=== PATIENT | male | born 1960 | race Caucasian/White ===

== ENCOUNTER 2020-08-25 17:14 | Emergency (ER) | payer BC, SELFPAY ==
[2020-08-25 17:20] VITALS: BP 164/76; PULSE 104; RESP 17; TEMP 36.4; O2SAT 100; BMI 23.0
--- NOTE | 2020-08-25 20:31 | ED.EXTPRO ---
HPI - Extremity Problem General Chief complaint: Extremity Problem,Nontraumatic Stated complaint: thinks blood clot in arm Time Seen by Provider: 08/25/20 18:07 Source: patient, family () and other Mode of arrival: Ambulatory Limitations: no limitations History of Present Illness HPI Narrative: This is a 59-year-old male who comes emergency department with concern for DVT in his right upper extremity. Patient states he had a DVT 10 years ago, he states they never found a cause. He continues to take Xarelto daily. He denies any missed doses or medication vacations. He states his only other medication is pravastatin. He states he started having similar symptoms which is tingling in his arms some very mild swelling in the hand. He was at the office on [facility] today his arm circumference was 1 cm larger than the left although he states that he is right-hand dominant and there is occasionally mild swelling on that side so this is not entirely unexpected. He denies fevers, no chest pain or pressure, no passing out. He denies any other symptoms. Related Data Home Medications Medication Instructions Recorded Confirmed pravastatin 40 mg PO DAILY 08/25/20 08/25/20 rivaroxaban [Xarelto] 10 mg PO DAILY 08/25/20 08/25/20 Allergies Allergy/AdvReac Type Severity Reaction Status Date / Time No Known Drug Allergies Allergy Verified 08/25/20 17:22 Review of Systems Review of Systems ROS Unobtainable: All systems reviewed & are unremarkable except as noted in HPI and below Patient History Medical History (Updated 08/25/20 @ 21:30 by Anamaria Rodriguez DO) DVT (deep venous thrombosis) Dyslipidemia Social History Smoking Status: Never smoker Smoking Status: Never smoker alcohol intake frequency: 0-2 drinks per day Alcohol type: wine Substance Use Type: does not use Exam Narrative Exam Narrative: GENERAL: Alert and oriented x three, well-nourished, well-appearing male in mild distress. HEENT: Head normocephalic, atraumatic, EOMI, pupils reactive, face symmetric, moist mucous membranes NECK: Supple, full range of motion CARDIOVASCULAR: Regular rate and rhythm without murmurs, rubs or gallops. RESPIRATORY: Breath sounds equal bilaterally, no wheezes rales or rhonchi. ABDOMEN: Soft, nontender. Normoactive bowel sounds all 4 quadrants. No guarding or rebound, rigidity, no mass : No CVA tenderness EXTREMITIES: Normal range of motion, no clubbing. Very mild edema in the right hand in comparison to left. I am not able to appreciate any swelling of right upper extremity in comparison to left. Full range of motion. No Color change early appreciated Neurovascularly intact. 2+ radial pulses bilaterally. NEUROLOGICAL: Cranial nerves II through XII grossly intact. Moving all extremities SKIN: Warm, dry, no petechiae, no rashes or lesions. Initial Vital Signs Initial Vital Signs: Vital Signs Temperature 97.6 F 08/25/20 17:20 Pulse Rate 104 H 08/25/20 17:20 Respiratory Rate 17 08/25/20 17:20 Blood Pressure 164/76 H 08/25/20 17:20 Pulse Oximetry 100 08/25/20 17:20 Scores Wells' Criteria for DVT Active Cancer (Treatment within 6 months): No Bedridden recently >3 days or major surgery within 4 weeks: No Calf Swelling >3cm compared to other leg: No Collateral (nonvericose) superficial veins present: No Entire leg swollen: No Localized tenderness along the deep vein system: No Pitting edema, confined to symtomatic leg: No Paralysis, paresis, or recent plaster immobilization of ext: No Previously documented DVT: Yes Alternative dx to DVT as likely or more likely: No Wells' criteria for DVT: 1 Course Orders Ordered: ED Orders 08/25/20 20:41 US periph venous up extrem rt Stat Vital Signs Vital signs: Vital Signs - 8 hr 08/25/20 21:39 Pulse Rate 78 Respiratory Rate 20 Blood Pressure 138/82 Pulse Oximetry 100 MDM - Extremity (Nontraumatic) Imaging Data US - DVT: My Impression: prelim is negative. Radiologist's Impression: [address] [id number] ReportSigned Patient: Young Caldwell EMR#: [id number]: 1Acct:[id number]/Sex: 59 / MDate of Service: 08/25/20Loc: EDAccession Number: [id number] Procedure: US periph venous up extrem rt Ordering Provider: Mank,Anamaria C D.O. PROCEDURE: US PERIPH VENOUS UP EXTREM RT INDICATIONS: EDEMA TECHNIQUE: Real-time imaging, as well as color and pulse Doppler interrogation, was performed of the right upper extremity deep veins from the inferior neck to the antecubital fossa. COMPARISON: None. FINDINGS: The internal jugular vein, visualized portions of the subclavian vein, axillary, and brachial veins are free of intraluminal thrombus. Where physically possible, the veins are normally compressible. Color and pulse Doppler demonstrate normal intraluminal flow, with expected phasicity and pulsatility. Additional scanning of the cephalic and basilic veins of the superficial system demonstrate normal compressibility, without thrombus. IMPRESSION: No DVT in the right upper extremity. Dictated by: Lizz Orozco M.D. on 08/25/2020 at 22:15 Approved by: Lizz Orozco M.D. on 08/25/2020 at 22:15 [facility] Narrative Medical decision making narrative: 59-year-old male on Xarelto with a history of right upper extremity DVT. Patient had some similar symptoms with very mild swelling and tingling in his extremity which is similar to symptoms he had in the past. He has not had skip doses. Discussed D-dimer versus is ultrasound as patient is concerned there was a 1 in circumference difference when checked at the office today. Patient does live on [facility] and has difficulty returning for further evaluation if he needed so decision was made to progress with ultrasound which is negative today. Discussed with patient other possible causes and to watch for any other concerning symptoms for further evaluation if needed. Discharge Plan Departure Patient Disposition: Home Clinical Impression: Tingling of right upper extremity Activity Restrictions/Additional Instructions: Follow-up with your physician this week for recheck. No blood clot or DVT was noted on your ultrasound this evening. Continue home medications as prescribed. Return to the ER for fevers, rapidly worsening swelling, new numbness, weakness or difficulty using your extremity, fevers, color changes of your extremity, new chest pain or pressure, shortness of breath or other new or concerning symptoms. Prescriptions: No Action pravastatin 40 mg tablet 40 mg PO DAILY RF: 0 Xarelto 10 mg tablet 10 mg PO DAILY RF: 0
--- NOTE | 2020-08-25 20:41 | DI.US.S_ITS ---
PROCEDURE: US PERIPH VENOUS UP EXTREM RT INDICATIONS: EDEMA TECHNIQUE: Real-time imaging, as well as color and pulse Doppler interrogation, was performed of the right upper extremity deep veins from the inferior neck to the antecubital fossa. COMPARISON: None. FINDINGS: The internal jugular vein, visualized portions of the subclavian vein, axillary, and brachial veins are free of intraluminal thrombus. Where physically possible, the veins are normally compressible. Color and pulse Doppler demonstrate normal intraluminal flow, with expected phasicity and pulsatility. Additional scanning of the cephalic and basilic veins of the superficial system demonstrate normal compressibility, without thrombus. IMPRESSION: No DVT in the right upper extremity. Dictated by: Lizz Orozco M.D. on 08/25/2020 at 22:15 Approved by: Lizz Orozco M.D. on 08/25/2020 at 22:15
[2020-08-25 21:39] VITALS: BP 138/82; PULSE 78; RESP 20; O2SAT 100
== END 2020-08-25 21:40 | disposition home or self-care (01) ==
PROVIDERS: Emergency Provider Emergency Medicine
DX: R20.2 Paresthesia of skin (principal); Z86.718 Personal history of other venous thrombosis and embolism
CPT/HCPCS: 93971; 99283

== ENCOUNTER → 2020-09-05 12:34 | Outpatient (CLI) | payer BC, SELFPAY ==
--- NOTE | 2020-09-05 | DI.US.S_ITS ---
PROCEDURE: US PERIPH VENOUS UP EXTREM MIKIE INDICATIONS: Bilate arm swelling; Rule out DVT TECHNIQUE: Real-time imaging, as well as color and pulse Doppler interrogation, was performed of both upper extremity deep veins from the inferior neck to the antecubital fossa. COMPARISON: None. FINDINGS: Right: The internal jugular veins, visualized portions of the subclavian veins, axillary veins, and brachial veins are free of intraluminal thrombus. Where physically possible, the veins are normally compressible. Color and pulse Doppler demonstrate normal intraluminal flow, with expected phasicity and pulsatility. Additional scanning of the cephalic and basilic veins of the superficial system demonstrate normal compressibility, without thrombus. IMPRESSION: No DVT in the right upper extremity. Dictated by: Arnel Reyes M.D. on 09/05/2020 at 14:02 Approved by: Arnel Reyes M.D. on 09/05/2020 at 14:02
== END ==
PROVIDERS: PCP Family Medicine; Referring Provider Family Medicine; Visit Provider Family Medicine
DX: M79.89 Other specified soft tissue disorders (principal)
CPT/HCPCS: 93971

== ENCOUNTER → 2020-09-11 15:23 | Outpatient (CLI) | payer BC, SELFPAY ==
--- NOTE | 2020-09-11 | DI.RAD.S_ITS ---
PROCEDURE: XR CHEST 2V INDICATIONS: RIGHT ARM SWELLING TECHNIQUE: 2 views of the chest were acquired. COMPARISON: None. FINDINGS: Surgical changes and devices: None. Lungs and pleura: Lungs are clear. No pleural effusions or pneumothorax. Mediastinum: Mediastinal contours are normal. Heart size is normal. Bones and chest wall: No suspicious bony abnormalities. Soft tissues appear unremarkable. IMPRESSION: No acute disease. Dictated by: Pawel Zee M.D. on 09/11/2020 at 16:38 Approved by: Pawel Zee M.D. on 09/11/2020 at 16:39
--- NOTE | 2020-09-11 | DI.CT.S_ITS ---
PROCEDURE: CT UE RT W CON INDICATIONS: ARM SWELLING SPECIAL INSTRUCTIONS VENOGRAM PROTOCOL TECHNIQUE: After the administration of intravenous contrast, 3 mm axial sections acquired of the right upper extremity, with coronal and sagittal reformats. COMPARISON: None. FINDINGS: Image quality: Excellent. Bones: No fracture or focal osseous lesion identified. Soft tissues: The right axillary, brachial and radial and ulnar arteries appear grossly contrast opacified. The veins of the right upper extremity are not well seen . No discrete mass identified The muscles are grossly unremarkable. No discrete abscess or fluid collection is seen. IMPRESSION: Suboptimal venogram as above. Right upper extremity veins are not well seen diffusely which could be due to poor contrast opacification however cannot exclude intraluminal filling defect. If there is persistent clinical concern for DVT, recommend a repeat ultrasound. Dictated by: Pawel Zee M.D. on 09/11/2020 at 17:00 Approved by: Pawel Zee M.D. on 09/11/2020 at 17:05
--- NOTE | 2020-09-11 | DI.CT.S_ITS ---
PROCEDURE: CT CHEST W CON INDICATIONS: RIGHT ARM SWELLING TECHNIQUE: After the administration of intravenous contrast, 5 mm thick sections acquired from the pulmonary apices to the posterior costophrenic angles. 1 mm axial lung, 5 mm thick coronal and sagittal reformats and 7 mm axial MIP were acquired. For radiation dose reduction, the following was used: automated exposure control, adjustment of mA and/or kV according to patient size. COMPARISON: [facility], US, US PERIPH VENOUS UP EXTREM MIKIE, 09/05/2020, 12:56. [facility], CT, CT UE RT W CON, 09/11/2020, 15:30. FINDINGS: Image quality: Excellent. Scattered subsegmental atelectasis and/or scarring. No focal consolidation. No pleural effusions or pneumothorax. Central and peripheral airways are patent and normal in caliber. Mediastinum: Heart size is normal. No pericardial effusion. No mediastinal or hilar adenopathy by size criteria. Thoracic aorta and central pulmonary arteries are normal in size. Esophagus is normal in caliber. No hiatal hernia. Bones and chest wall: No suspicious bony lesions. No vertebral body compression fractures. No axillary or supraclavicular adenopathy by size criteria. Thyroid is grossly unremarkable. There is adequate contrast opacification of the internal jugular veins bilaterally, and the brachiocephalic vein bilaterally. However the subclavian, axillary and distal upper extremity veins are not well contrast opacified. In particular, the right subclavian vein is not well seen. A discrete intraluminal filling defect is not well seen. There appears to be layering contrast material within the left axillary and subclavian vein raising the possibility of venous stasis. Abdomen: Visualized upper abdominal solid organs appear normal. Upper abdominal bowel loops are normal in caliber. IMPRESSION: Central venous structures including the SVC, internal jugular vein, brachiocephalic veins appear grossly patent bilaterally. Poor contrast opacification of the remaining venous structures as detailed above. Technically, cannot exclude DVT within the subclavian, axillary or distal venous structures. If there is persistent clinical concern, recommend follow-up upper extremity ultrasound. In particular, the right subclavian vein is not well seen raising possibility of stenosis or occlusion. No lymphadenopathy identified No acute consolidation Dictated by: Pawel Zee M.D. on 09/11/2020 at 16:46 Approved by: Pawel Zee M.D. on 09/11/2020 at 16:59
== END ==
PROVIDERS: PCP Family Medicine; Referring Provider Family Medicine; Visit Provider Family Medicine
DX: M79.89 Other specified soft tissue disorders (principal); Z86.718 Personal history of other venous thrombosis and embolism
CPT/HCPCS: 71046; 71260; 73201; Q9967

== ENCOUNTER 2020-09-15 15:00 | Emergency (ER) | payer BC, SELFPAY ==
[2020-09-15 15:05] VITALS: BP 143/69; PULSE 89; RESP 16; TEMP 36.6; O2SAT 100; BMI 22.4
--- NOTE | 2020-09-15 15:14 | DI.US.S_ITS ---
PROCEDURE: PERIP VENOUS UP EXTREM RT INDICATIONS: INCREASING PAIN AND SWELLING. Clinical concern for DEEP VEIN THROMBOSIS. TECHNIQUE: Real-time imaging, as well as color and pulse Doppler interrogation, was performed of the right upper extremity deep veins from the inferior neck to the antecubital fossa. COMPARISON: [facility], [facility] VENOUS UP EXTREM MIKIE, 09/05/2020, 12:56. [facility], PERIP VENOUS UP EXTREM RT, 08/25/2020, 21:11. FINDINGS: The internal jugular vein, visualized portions of the subclavian vein, axillary, and brachial veins are free of intraluminal thrombus. Where physically possible, the veins are normally compressible. Color and pulse Doppler demonstrate normal intraluminal flow, with expected phasicity and pulsatility. Additional scanning of the cephalic and basilic veins of the superficial system demonstrate normal compressibility, without thrombus. IMPRESSION: Negative for deep venous thrombosis. Dictated by: Moncho Muller M.D. on 09/15/2020 at 15:28 Approved by: Moncho Muller M.D. on 09/15/2020 at 15:29
--- NOTE | 2020-09-15 17:36 | ED.GENADULT ---
HPI - General Adult General Chief complaint: Extremity Injury, Upper Stated complaint: RIGHT ARM SWELLING PAIN Time Seen by Provider: 09/15/20 17:18 Source: patient Mode of arrival: Ambulatory Limitations: no limitations History of Present Illness HPI narrative: 59-year-old male who has had issues with his right arm and shoulder over the past several weeks. He has had a DVT in the past. He is currently on Xarelto. He states he has been taking this on a daily basis. He has seen his primary doctor regarding tingling in his upper extremity and some swelling. He thinks that it is mostly associated when he uses his arm excessively however his primary doctor ordered a CT scan of his upper extremity. Review of the CT results shows that the arterial flow to his upper extremities unremarkable they venous side of the CT scan was indeterminate. The patient contacted his primary doctor's office today because he was having continued symptoms and his doctor was not in the office they told to come the emergency department for evaluation. Related Data Home Medications Medication Instructions Recorded Confirmed pravastatin 40 mg PO DAILY 08/25/20 08/25/20 rivaroxaban [Xarelto] 10 mg PO DAILY 08/25/20 08/25/20 Allergies Allergy/AdvReac Type Severity Reaction Status Date / Time No Known Drug Allergies Allergy Verified 09/15/20 15:10 Review of Systems Constitutional Constitutional: Denies fatigue and Denies headache(s) ENT Ears, Nose, Mouth, and Throat: Denies headache(s) Cardiovascular Cardiovascular: Denies chest pain and Denies dyspnea Respiratory Respiratory: Denies dyspnea Gastrointestinal Gastrointestinal: Denies abdominal pain Musculoskeletal Musculoskeletal: Reports tingling Comments: Right shoulder arm and hand tingling and pain Integumentary/Breasts Skin/Breast: Denies rash Neurologic Neurologic: Denies headache(s) and Reports tingling Endocrine Endocrine: Denies fatigue Hematologic/Lymphatic On Anticoagulants: Yes Allergic/Immunologic Allergic/Immunologic: Denies urticaria Patient History Medical History DVT (deep venous thrombosis) Dyslipidemia Social History Smoking Status: Never smoker Smoking Status: Never smoker alcohol intake frequency: 0-2 drinks per day Alcohol type: wine Substance Use Type: does not use Exam Initial Vital Signs Initial Vital Signs: Vital Signs Temperature 98 F 09/15/20 15:05 Pulse Rate 89 09/15/20 15:05 Respiratory Rate 16 09/15/20 15:05 Blood Pressure 143/69 H 09/15/20 15:05 Pulse Oximetry 100 09/15/20 15:05 Const General: cooperative and comfortable Limitations: mental status not altered HENMT Head: normal to inspection and normocephalic Resp Effort & Inspection: normal respiratory effort Auscultation: clear to auscultation bilaterally Cardio Rate: regular rate Rhythm: regular rhythm Pulses: radial pulses present on the right Skin Lesions: no lesions Rashes: no rashes Neuro General: patient alert, patient awake and patient oriented x3 Cognition: normal cognition Speech: speech normal Motor: muscle tone normal throughout Sensory Exam: no sensory deficits noted Extrem General: normal to inspection and capillary refill normal Psych Appearance: grossly normal and well kempt Course Orders Ordered: ED Orders 09/15/20 15:14 [facility] venous up extrem rt Stat Vital Signs Vital signs: Vital Signs - 8 hr 09/15/20 15:05 Temperature 98 F Pulse Rate 89 Respiratory Rate 16 Blood Pressure 143/69 H Pulse Oximetry 100 Medical Decision Making Imaging Data US - DVT: Radiologist's Impression: [address] [id number] ReportSigned Patient: Young Caldwell EMR#: [id number]: 1960cct:[id number]/Sex: 59 / MDate of Service: 09/15/20Loc: EDAccession Number: [id number] Procedure: [facility] venous up extrem rt Ordering Provider: Jh Schroeder D.O. PROCEDURE: [facility] VENOUS UP EXTREM RT INDICATIONS: INCREASING PAIN AND SWELLING. Clinical concern for DEEP VEIN THROMBOSIS. TECHNIQUE: Real-time imaging, as well as color and pulse Doppler interrogation, was performed of the right upper extremity deep veins from the inferior neck to the antecubital fossa. COMPARISON: [facility] PERIP VENOUS UP EXTREM MIKIE, 09/05/2020, 12:56. [facility] PERIP VENOUS UP EXTREM RT, 08/25/2020, 21:11. FINDINGS: The internal jugular vein, visualized portions of the subclavian vein, axillary, and brachial veins are free of intraluminal thrombus. Where physically possible, the veins are normally compressible. Color and pulse Doppler demonstrate normal intraluminal flow, with expected phasicity and pulsatility. Additional scanning of the cephalic and basilic veins of the superficial system demonstrate normal compressibility, without thrombus. IMPRESSION: Negative for deep venous thrombosis. Dictated by: Moncho Muller M.D. on 09/15/2020 at 15:28 Approved by: Moncho Muller M.D. on 09/15/2020 at 15:29 [facility] Narrative Medical decision making narrative: Review the CT scan shows that the arterial flow his right upper extremity is unremarkable. The DVT ultrasound today is unremarkable. Low suspicion for CVA. Low suspicion for TIA. He had has an appointment scheduled with vascular surgeon next week. Feel we can hold on further workup for now. He can be safely discharged home. Given return precautions and follow-up instructions. He expressed understanding agreement. Discharge Plan Departure Patient Disposition: Home Clinical Impression: Paresthesia of right arm Instructions: DI for Arm Pain Activity Restrictions/Additional Instructions: Recommend that you continue all of your medications as directed especially your Xarelto. Keep all of your scheduled medical appointments. Return to the emergency department for any new or worsening symptoms Prescriptions: No Action pravastatin 40 mg tablet 40 mg PO DAILY RF: 0 Xarelto 10 mg tablet 10 mg PO DAILY RF: 0 Referrals: Jh Sanchez MD [Primary Care Provider] -
[2020-09-15 17:37] VITALS: BP 128/75; PULSE 89; RESP 16; O2SAT 99
== END 2020-09-15 17:40 | disposition home or self-care (01) ==
PROVIDERS: Emergency Provider Emergency Medicine; PCP Family Medicine
DX: R20.2 Paresthesia of skin (principal); R22.31 Localized swelling, mass and lump, right upper limb; Z79.01 Long term (current) use of anticoagulants
CPT/HCPCS: 93971; 99283

== ENCOUNTER → 2020-12-12 08:20 | Outpatient (CLI) | payer BC, SELFPAY ==
[2020-12-12 18:49] LABS: Add Manual Diff / Slide Review NO; Basophils Absolute Auto 0 /uL (0-100); Basophils Percent Auto 1.1 % (0-2); Eosinophils Absolute Auto 100 /uL (0-450); Eosinophils Percent Auto 1.5 % (2-4); Hematocrit 45.8 % (41-53); Hemoglobin 15.5 g/dL (13.5-17.5); Lymphocytes Absolute Auto 1800 /uL (1100-4500); Lymphocytes Percent Auto 39.2 % (25-40); Mean Corpuscular HGB Conc 33.9 % (30-36); Mean Corpuscular Hemoglobin 31.9 PG (26-34); Monocytes Absolute Auto 400 /uL (0-900); Monocytes Percent Auto 8.2 % (3-14); Neutrophils Absolute Auto 2200 /uL (1500-7000); Platelet Count 221 X10^3/uL (150-400); Red Blood Cell Count 4.87 X10^6/uL (4.5-5.9); Red Cell Distribution Width 14.1 % (11.6-14.8); White Blood Cell Count 4.5 X10^3/uL (4.5-11.0)
[2020-12-12 19:37] LABS: Alanine Aminotransferase 29 IU/L (<50); Albumin 4.4 g/dL (3.5-5.0); Albumin Globulin Ratio 1.5 (1.0-2.8); Alkaline Phosphatase 45 U/L (38-126); Aspartate Aminotransferase 38 IU/L (17-59); BUN Creatinine Ratio 15.6 (6-22); Bilirubin Total 0.7 mg/dL (0.2-1.3); Blood Urea Nitrogen 12 mg/dL (9-20); Calcium 9.4 mg/dL (8.4-10.2); Carbon Dioxide 30 mmol/L (22-32); Chloride 102 mmol/L (98-107); Cholesterol 176 mg/dL (140-199); Estimated Glomerular Filt Rate > 60.0 mL/min (>60); Globulin 2.9 g/dL (1.7-4.1); Glucose 101 mg/dL (80-110); HDL Cholesterol 61 mg/dL (40-60); HEMOLYSIS < 15 (0-50); LDL Cholesterol Calculated 97 mg/dL (<100); Potassium 4.6 mmol/L (3.4-5.1); Sodium 140 mmol/L (137-145); Total Protein 7.3 g/dL (6.3-8.2); Triglycerides 91 mg/dL (35-150)
== END ==
PROVIDERS: PCP Family Medicine; Visit Provider Family Medicine
DX: E78.5 Hyperlipidemia, unspecified (principal); R10.9 Unspecified abdominal pain
CPT/HCPCS: 80053; 80061; 85025

== ENCOUNTER → 2021-10-05 10:06 | Outpatient (CLI) | payer BC, SELFPAY | PROVIDERS: PCP Family Medicine; Visit Provider Family Medicine | DX: R19.7 Diarrhea, unspecified (principal) | CPT/HCPCS: 87045; 87177; 87899 ==

== ENCOUNTER → 2022-02-21 09:27 | Outpatient (CLI) | payer BC, SELFPAY ==
[2022-02-21 20:06] LABS: Alanine Aminotransferase 30 IU/L (<50); Albumin 4.6 g/dL (3.5-5.0); Albumin Globulin Ratio 1.4 (1.0-2.8); Alkaline Phosphatase 47 U/L (38-126); Aspartate Aminotransferase 48 IU/L (17-59); BUN Creatinine Ratio 12.7 (6-22); Bilirubin Total 0.7 mg/dL (0.2-1.3); Blood Urea Nitrogen 10 mg/dL (9-20); Calcium 8.8 mg/dL (8.4-10.2); Carbon Dioxide 29 mmol/L (22-32); Chloride 102 mmol/L (98-107); Cholesterol 213 mg/dL (140-199); Estimated Glomerular Filt Rate > 60 mL/min (>60); Globulin 3.4 g/dL (1.7-4.1); Glucose 109 mg/dL (80-110); HDL Cholesterol 57 mg/dL (40-60); HEMOLYSIS 17 (0-50); LDL Cholesterol Calculated 137 mg/dL (<100); Sodium 138 mmol/L (137-145); Triglycerides 94 mg/dL (35-150)
[2022-02-21 20:34] LABS: TSH w/ Reflex to FT4 2.14 uIU/mL (0.47-4.68)
[2022-02-21 20:37] LABS: Prostate Specific Antigen Scrn 1.19 ng/mL (0.1-4.0)
== END ==
PROVIDERS: PCP Family Medicine; Visit Provider Family Medicine
DX: R73.01 Impaired fasting glucose (principal); Z86.39 Personal history of other endocrine, nutritional and metabolic disease; Z12.5 Encounter for screening for malignant neoplasm of prostate; Z80.42 Family history of malignant neoplasm of prostate; E78.5 Hyperlipidemia, unspecified
CPT/HCPCS: 80053; 80061; 84443; G0103

== ENCOUNTER → 2022-06-12 13:15 | Outpatient (CLI) | payer BC, SELFPAY ==
[2022-06-18 17:11] LABS: Fecal Immunochemical Test Negative (Negative)
== END ==
PROVIDERS: PCP Family Medicine; Visit Provider Family Medicine
DX: K58.9 Irritable bowel syndrome, unspecified (principal); R10.11 Right upper quadrant pain
CPT/HCPCS: 82274

== ENCOUNTER → 2022-06-17 13:56 | Outpatient (CLI) | payer BC, SELFPAY ==
[2022-06-17 20:22] LABS: Amylase 68 U/L (30-110); Lipase 84 U/L (23-300)
[2022-06-17 20:50] LABS: Erythrocyte Sedimentation Rate 3 MM/HR (0-15)
== END ==
PROVIDERS: PCP Family Medicine; Visit Provider Family Medicine
DX: K58.9 Irritable bowel syndrome, unspecified (principal); R10.11 Right upper quadrant pain
CPT/HCPCS: 82150; 83690; 85651

== ENCOUNTER → 2022-10-03 11:17 | Outpatient (CLI) | payer BC, SELFPAY ==
[2022-10-03 20:41] LABS: TSH w/ Reflex to FT4 2.07 uIU/mL (0.47-4.68)
[2022-10-08 12:43] LABS: Calprotectin, Stool 52 ug/g (0-120)
== END ==
PROVIDERS: PCP Family Medicine; Visit Provider Family Medicine
DX: E05.90 Thyrotoxicosis, unspecified without thyrotoxic crisis or storm (principal); K58.9 Irritable bowel syndrome, unspecified; R10.11 Right upper quadrant pain
CPT/HCPCS: 83993; 84443

== ENCOUNTER → 2022-11-11 08:39 | Outpatient (CLI) | payer BC, SELFPAY ==
--- NOTE | 2022-11-11 08:40 | DI.CT.S_ITS ---
PROCEDURE: CT ABDOMEN PELVIS W CON INDICATIONS: abdominal pain TECHNIQUE: After the administration of oral and IV contrast, axial sections were acquired from the lung bases to the pubic symphysis. Coronal and sagittal reformats were performed. For radiation dose reduction, the following was used: automated exposure control, adjustment of mA and/or kV according to patient size. COMPARISON: None. FINDINGS: Image quality: Excellent. Lung bases: Unremarkable. Heart: No significant findings. ABDOMEN: Liver: Occasional hypodensities too small to characterize. No solid mass. Gallbladder: Normal. Biliary ducts: Nondilated. Pancreas: The pancreas is normal size, however the margins are abnormally smooth and well-defined. There is no pancreatic ductal dilatation, mass, calcification, or peripancreatic inflammation. Spleen: Two small hypodensities in the lower pole, also too small to characterize, but most commonly cysts or hemangiomas. Adrenal Glands: No nodules. Kidneys and Ureters: Symmetric enhancement. No nephrolithiasis or hydronephrosis. No hydroureter. Stomach and Bowel: Distal descending and sigmoid colon diverticulosis. There is a short, retrocecal appendix which demonstrates mild enlargement measuring between eight and 10 mm in diameter. The mucosa appears hyperemic. There is a very tiny amount of inflammatory change in the adjacent pericolic gutter. No associated fluid collections. Stomach and small bowel are normal. Peritoneum: No abnormal intraperitoneal fluid. No free air. Ventral Wall: No hernia. Abdominal Nodes: No retroperitoneal or mesenteric adenopathy by size criteria. Vessels: Aorta and inferior vena cava are normal in size. PELVIS: Pelvic Organs: Mildly enlarged prostate gland. Bladder: Normal bladder wall thickness. Pelvic Nodes: No enlarged lymph nodes. Miscellaneous: No inguinal hernias are seen. Bones: Unremarkable. IMPRESSION: 1. Mild enlargement and trace inflammatory changes involving a short retrocecal appendix. Correlate with pain at McBurney's point. Consider recurrent/chronic appendicitis. 2. Abnormal appearance of the pancreas with morphology suggestive of autoimmune pancreatitis. Correlate with IgG four levels. No evidence of acute pancreatitis. 3. Colonic diverticulosis. Dictated by: Lizz Orozco M.D. on 11/11/2022 at 12:11 Approved by: Lizz Orozco M.D. on 11/11/2022 at 12:25
[2022-11-11 09:31] LABS: BUN Creatinine Ratio 14.5 (6-22); Blood Urea Nitrogen 11 mg/dL (9-20); Calcium 8.8 mg/dL (8.4-10.2); Carbon Dioxide 29 mmol/L (22-32); Chloride 102 mmol/L (98-107); Estimated Glomerular Filt Rate > 60 mL/min (>60); Glucose 111 mg/dL (80-110); HEMOLYSIS < 15 (0-50); Potassium 3.9 mmol/L (3.4-5.1); Sodium 139 mmol/L (137-145)
== END ==
PROVIDERS: PCP Family Medicine; Referring Provider Family Medicine; Visit Provider Family Medicine
DX: K86.9 Disease of pancreas, unspecified (principal); K57.30 Diverticulosis of large intestine without perforation or abscess without bleeding; R10.31 Right lower quadrant pain; R10.9 Unspecified abdominal pain
CPT/HCPCS: 36415; 74177; 80048; Q9967

== ENCOUNTER → 2022-12-03 09:08 | Outpatient (CLI) | payer BC, SELFPAY ==
[2022-12-03 11:41] LABS: Amylase 85 U/L (30-110); Lipase 108 U/L (23-300)
== END ==
PROVIDERS: PCP Family Medicine; Referring Provider Family Medicine; Visit Provider Family Medicine
DX: K85.90 Acute pancreatitis without necrosis or infection, unspecified (principal); R10.9 Unspecified abdominal pain
CPT/HCPCS: 36415; 82150; 82787; 83690

== ENCOUNTER → 2023-04-08 14:05 | Outpatient (CLI) | payer BC, SELFPAY ==
--- NOTE | 2023-04-08 14:05 | DI.RAD.S_ITS ---
PROCEDURE: XR CERVICAL SPINE 4V OR 5V INDICATIONS: Neck pain TECHNIQUE: 5 views of the cervical spine acquired. COMPARISON: None. FINDINGS: Bones: No fractures or dislocations to the C7 level. Minimal multilevel bony foraminal narrowing on oblique images. Mild multilevel degenerative changes with disc height loss, endplate spurring, and facet arthropathy. Soft tissues: No prevertebral soft tissue swelling. IMPRESSION: Degenerative changes of the cervical spine. Dictated by: Suman Mccullough M.D. on 04/09/2023 at 10:30 Approved by: Suman Mccullough M.D. on 04/09/2023 at 10:32
== END ==
PROVIDERS: PCP Family Medicine; Referring Provider Anesthesiology; Visit Provider Anesthesiology
DX: M79.601 Pain in right arm (principal); M54.2 Cervicalgia; G54.0 Brachial plexus disorders
CPT/HCPCS: 72050

== ENCOUNTER 2023-08-06 10:30 | Outpatient (CLI) | payer BC, SELFPAY ==
[2023-08-06 10:50] VITALS: BP 159/78; PULSE 92; RESP 20; TEMP 36.4; O2SAT 100
[2023-08-06 11:41] VITALS: BP 136/71; PULSE 12; RESP 13; O2SAT 100
[2023-08-06 11:46] VITALS: BP 130/75; PULSE 75; RESP 18; O2SAT 100
[2023-08-06 11:49] VITALS: BP 121/71; PULSE 73; RESP 16; O2SAT 100
[2023-08-06] MEDS: BUPIVACAINE 0.25% (PF) VIAL 5 ML INJ (11:50)
[2023-08-06] MEDS: DEXAMETHASONE 10 MG/ML VIAL INJ (11:50)
[2023-08-06 11:55] VITALS: BP 155/83; PULSE 73; RESP 20; O2SAT 100
[2023-08-06 12:00] VITALS: BP 135/72; PULSE 82; RESP 20; O2SAT 100
--- NOTE | 2023-08-06 12:03 | P.PCN_ITS ---
Date/Time/Diagnoses Date of procedure: 08/06/23 Time of procedure: 11:30 Procedure Notes Physician: Ben Ibanez Total Fluoroscopy time (seconds): 0 Total sedation minutes: 0 Procedure in detail & Post-procedure care: Right Anterior and Middle Scalene Injection Indications: Young is presenting for treatment of thoracic outlet syndrome with neck and upper extremity pain. Preoperative diagnosis: Right thoracic outlet syndrome Postoperative diagnosis: Same Focused Examination: Ax3 Mood and affect are normal Vital Signs: VS Consent: Following review of allergies and potential side effects/complications, including, but not necessarily limited to, infection, allergic reaction, local tissue breakdown, stroke, temporary or permanent nerve injury, paralysis, and possible , the patient indicated that they understood and agreed to proceed.? An informed consent document was signed by the patient, witnessed by a nurse and placed in the patient's chart.? Additionally, other treatment options including medications and physical therapy were reviewed with the patient. All questions were answered. Site was then marked. Anesthesia: Local Position: Prone Monitoring: NIBP, Pulse oximetry, 3 lead EKG Needle used: 25 gauge, 1.5 in hypodermic needle Contrast: None Injectate: 0.25% bupivacaine 7 mL with dexamethasone 10 mg (4 mL per muscle) Technique: The skin was prepped with chloraprep and then draped in a sterile fashion. Time out was performed as per protocol. Oxygen applied via NC. The right anterior and middle scalene muscles were identified using real-time ultrasound. Vascular structures including the carotid artery and internal/exter nal jugular veins as well as the brachial plexus were identified. Using a hypodermic needle, the tip was advanced into the middle scalene muscle. The above injectate was injected into this muscle. Next the anterior scalene muscle was identified. Using the same hypodermic needle, the tip was advanced into the anterior scalene muscle. The above injectate was injected into this muscle. After negative aspiration, the above-mentioned injectate was then slowly administered and the needle withdrawn. Care was taken to avoid vascular and nerve tissues. The patient expressed no unusual discomfort or paresthesias during the injection. There were no complaints of arm numbness or weakness after the injection. Band-Aids applied to injection sites. EBL: less than 1 ml Complications: None Post Procedure: Patient was taken to the recovery and monitored. The patient was provided a Pain Log to continue to record the patient's response to the target- specific procedure prior to the patient's follow-up visit with the referring physician. Patient was stable upon discharge. Detailed post procedure instructions were provided. Patient was asked to call in the event of worsening pain, fever, weakness, numbness or bladder/bowel incontinence.
== END 2023-08-06 12:01 | disposition home or self-care (01) ==
LOC: RAD 10:30
PROVIDERS: PCP Family Medicine; Referring Provider Anesthesiology; Visit Provider Anesthesiology
DX: G54.0 Brachial plexus disorders (principal)
CPT/HCPCS: 20552; 76942; J1100; J3490

== ENCOUNTER → 2023-09-18 07:53 | Outpatient (CLI) | payer BC, SELFPAY ==
[2023-09-18 18:56] LABS: Cholesterol 137 mg/dL (140-199); Glucose 100 mg/dL (80-110); HDL Cholesterol 59 mg/dL (40-60); LDL Cholesterol Calculated 65 mg/dL (<100); Triglycerides 65 mg/dL (35-150)
== END ==
PROVIDERS: PCP Family Medicine; Visit Provider Family Medicine
DX: E78.2 Mixed hyperlipidemia (principal); Z13.1 Encounter for screening for diabetes mellitus
CPT/HCPCS: 80061; 82947

== ENCOUNTER → 2024-03-09 15:00 | Outpatient (CLI) | payer BC, SELFPAY ==
--- NOTE | 2024-03-09 15:30 | DI.NM.S_ITS ---
PROCEDURE: NM EXERCISE TREADMILL NON NUC COMPARISON: None. INDICATIONS: CÁRDENAS FINDINGS: The patient exercised for 9 minutes and 0 seconds reaching 109% of maximum predicted heart rate. 9.7METs, ALESSANDRO -9%. Rare PACs during exercise. No angina and no diagnostic ST changes during exercise or recovery. IMPRESSION: Low risk, normal treadmill ECG only stress test with above average exercise tolerance (9.7METS, ALESSANDRO -9%). Dictated by: Chan Garrett MD on 03/10/2024 at 15:19 Approved by: Chan Garrett MD on 03/10/2024 at 15:21
== END ==
LOC: RAD 15:01
PROVIDERS: PCP Family Medicine; Referring Provider Family Medicine; Visit Provider Family Medicine
DX: R06.09 Other forms of dyspnea (principal)
CPT/HCPCS: 93017

== ENCOUNTER → 2024-04-26 09:08 | Outpatient (CLI) | payer BC, SELFPAY ==
--- NOTE | 2024-04-26 10:17 | DI.MRI.S_ITS ---
PROCEDURE: MR BRAIN (IAC) WWO CON INDICATIONS: vertigo, tinnitus TECHNIQUE: Noncontrast sagittal T1 spin echo, axial FLAIR, axial gradient echo, axial diffusion and ADC through the brain. Axial thin-slice 3D CISS, coronal TruFISP, axial T1 spin echo with fat saturation through the internal auditory canals. After the administration of contrast, thin slice axial and coronal T1 spin echo with fat saturation through the internal auditory canals, and axial and coronal and sagittal T1 spin echo with fat saturation through the brain. COMPARISON: None. FINDINGS: Image quality: Excellent. Cerebellopontine angles: No cerebellopontine angle masses. Inner ear structures appear normally formed. No suspicious enhancement in the internal auditory canal or along the course of the 7th cranial nerve. CSF spaces: Ventricles are normal in size and shape. No extra-axial fluid collections. Basal cisterns are patent. Brain: No intracranial bleeds or mass effects. Woody-white matter interface is intact. No abnormal intracranial enhancement. Diffusion weighted images demonstrate no acute ischemic insults. Brainstem appears normal. Normal intravascular flow voids are present. Skull and face: Calvarial marrow signal is normal. Orbits appear normal. Sinuses: Sinuses and mastoids are clear. IMPRESSION: No cause for patient's symptoms identified. Normal appearance of the internal auditory canals. No abnormal enhancement or masses are identified. Normal appearance of the brain. No acute intracranial abnormalities or abnormal intracranial enhancement. Dictated by: Beto Phillip M.D. on 04/26/2024 at 11:37 Approved by: Beto Phillip M.D. on 04/26/2024 at 11:42
== END ==
PROVIDERS: PCP Family Medicine; Referring Provider Family Medicine; Visit Provider Family Medicine
DX: R42 Dizziness and giddiness (principal); H93.19 Tinnitus, unspecified ear
CPT/HCPCS: 70553; A9579

== ENCOUNTER → 2024-05-08 09:01 | Outpatient (CLI) | payer BC, SELFPAY ==
--- NOTE | 2024-05-08 09:02 | DI.MRI.S_ITS ---
PROCEDURE: MR CERVICAL SPINE WO CON INDICATIONS: CERVICAL SPONDYLOSIS TECHNIQUE: Noncontrast sagittal T1 spin echo and T2 fast spin echo, sagittal STIR, foraminal oblique sagittal T2 fast spin echo, and axial gradient echo or T2 fast spin echo through the cervical spine. COMPARISON: None. FINDINGS: Image quality: Excellent. Alignment and Curvature: There is normal bony alignment. Bone Marrow: Marrow demonstrates normal overall signal. Spinal Cord: Visualized spinal cord has normal size and signal. No cerebellar tonsillar herniation. Paraspinous Soft Tissues: No paravertebral masses. Prevertebral soft tissues are normal in thickness. C2-C3: No canal stenosis or foraminal stenosis. C3-C4: No canal stenosis or foraminal stenosis. C4-C5: Posterior disc plus osteophyte, eccentric to the left. There is mild central canal stenosis. AP diameter of the central canal measures 9.1 mm. Reference axial image 29 of series 4. There is wgfv-[id number]-hwqlwglt stenosis of the left side of the canal. There is bilateral uncovertebral joint hypertrophy and facet hypertrophy. There is dkif-sj-uxlowssr bilateral foraminal narrowing. C5-C6: At diffuse posterior disc post osteophyte mildly indenting on the cord. Mild canal stenosis. AP diameter of the central canal is 9.2 mm. Bilateral uncovertebral joint hypertrophy. Left facet hypertrophy. Moderate to severe left foraminal narrowing with a degree of left foraminal C6 nerve root impingement. Reference axial image 34 of series 4. C6: Posterior to C6 there is prominent ligamentous hypertrophy posteriorly a. This contributes to the most significant amount of canal stenosis, moderate, on image 38 of series 4. AP diameter of the central canal is 8.4 mm. C6-C7: Posterior disc osteophyte complex. Borderline canal stenosis. AP diameter of the central canal is 9.8 mm. There is bilateral uncovertebral joint hypertrophy and facet hypertrophy. There is moderate to severe right foraminal narrowing and a degree of right foraminal C7 nerve root impingement. Reference axial image 40 of series 4 for the central canal and right foraminal oblique image 8 of series 6 for the right foraminal narrowing. C7-T1: Normal appearance. IMPRESSION: 1. Diffuse cervical spondylitic change as described above. 2. Canal stenosis is mild at C4-C5 (there is pksj-hv-reljilsl narrowing of the left side of the canal at this level as well) and C5-C6. Behind C6, it is moderate. It is borderline at C6-C7. 3. Multilevel foraminal narrowing as described above. Findings include moderate to severe left foraminal narrowing at C5-C6 and moderate to severe right foraminal narrowing at C6-C7. Dictated by: Fermin Tao M.D. on 05/10/2024 at 11:48 Approved by: Fermin Tao M.D. on 05/10/2024 at 12:07
== END ==
PROVIDERS: PCP Family Medicine; Referring Provider Acupuncturist; Visit Provider Acupuncturist
DX: M47.812 Spondylosis without myelopathy or radiculopathy, cervical region (principal); M48.02 Spinal stenosis, cervical region
CPT/HCPCS: 72141

== ENCOUNTER → 2024-06-10 13:24 | Outpatient (CLI) | payer BC, SELFPAY ==
[2024-06-10 19:48] LABS: Add Manual Diff / Slide Review NO; Basophils Absolute Auto 0 /uL (0-100); Basophils Percent Auto 0.4 % (0-2); Eosinophils Absolute Auto 100 /uL (0-450); Eosinophils Percent Auto 1.4 % (2-4); Hematocrit 45.2 % (41-53); Hemoglobin 15.4 g/dL (13.5-17.5); Lymphocytes Absolute Auto 2200 /uL (1100-4500); Lymphocytes Percent Auto 39.8 % (25-40); Mean Corpuscular Hemoglobin 31.8 PG (26-34); Mean Corpuscular Volume 93.4 fL (80-100); Monocytes Absolute Auto 500 /uL (0-900); Monocytes Percent Auto 8.6 % (3-14); Neutrophils Absolute Auto 2800 /uL (1500-7000); Neutrophils Percent Auto 49.8 % (50-75); Platelet Count 258 X10^3/uL (150-400); Red Blood Cell Count 4.84 X10^6/uL (4.5-5.9); Red Cell Distribution Width 14.1 % (11.6-14.8); White Blood Cell Count 5.6 X10^3/uL (4.5-11.0)
[2024-06-10 20:16] LABS: TSH w/ Reflex to FT4 1.59 uIU/mL (0.47-4.68)
[2024-06-12 09:36] LABS: Calcium 9.3 mg/dL (8.6-10.2); Parathyroid Hormone, Intact 46 pg/mL (15-65)
== END ==
PROVIDERS: PCP Family Medicine; Visit Provider Family Medicine
DX: R42 Dizziness and giddiness (principal); R06.09 Other forms of dyspnea; Z86.39 Personal history of other endocrine, nutritional and metabolic disease
CPT/HCPCS: 82310; 83970; 84443; 85025